=== PATIENT | female | born 1995 | race African-American/Black ===

== ENCOUNTER 2025-05-16 13:19 | Emergency (ER) | payer OTHER ==
[~2025-05-16] VITALS: Ht 162.6 cm; Wt 122.0 kg
[2025-05-16 13:35] VITALS: O2SAT 100
[2025-05-16] MEDS: ACETAMINOPHEN 500MG TABLET PO ONE (14:31)
[2025-05-16] MEDS ORDERED: ACET-2708 MT (14:59)
[2025-05-16] MEDS ORDERED: LIDO-53 TP (14:59)
[2025-05-16 16:04] LABS: HCG SCREEN NEGATIVE
[2025-05-16] MEDS: KETOROLAC 30MG/ML VIAL IM ONE (16:48)
[2025-05-16] MEDS ORDERED: IBUP-2030 MT (17:46)
[2025-05-16] MEDS: MORPHINE SULFATE 4 MG/ML INJ (FOR IV/IM USE) IM ONE (18:13)
[2025-05-16] MEDS: HYDROXYZINE 25MG TABLET PO ONE (18:36)
[2025-05-16 19:38] VITALS: BP 117/76; PULSE 80; RESP 16; TEMP 36.9; O2SAT 100
== END 2025-05-16 19:40 | disposition home or self-care (01) ==
LOC: ER 13:19
DX: M25.561 Pain in right knee (principal); W18.30XA Fall on same level, unspecified, initial encounter; Y93.89 Activity, other specified; Y92.89 Other specified places as the place of occurrence of the external cause; Y99.8 Other external cause status
CPT/HCPCS: 99284; 29505; 84703; 73560; 96372; J1885; J2270; A6449